=== PATIENT | female | born 1960 | race Caucasian/White ===

== ENCOUNTER 2017-10-31 10:11 | Outpatient (CLI) | payer OTHER ==
--- NOTE | 2017-11-01 06:53 | Diagnostic Imaging Report ---
ANALY DAVILA [facility] [address] [facility] [address] [id number] Report Submission Date: Oct 31, 2017 4:08:50 PM CDT Patient Study Name: JUDY LIU Date: Oct 31, 2017 10:31:42 AM CDT Modality Type: DX Gender: F Description: UPPER EXTREMITY : 62 Institution: [facility] Physician: ANALY DAVILA Examination: Plain film left finger History: CONTUSION/PAIN 5TH LEFT DIGIT (Hx) / ITS.REASON CONTUSION (DICOM Hx) / ITS.REASON CONTUSION (Pt comments) Comparison exams: None available Findings: 3 views the left 5th digit demonstrate osteopenia. Lucency involving the base of the proximal phalanx 5th digit. Articular degenerative changes. No other gross cortical abnormality. Impression: Fracture base proximal phalanx 5th digit. Electronically signed on Oct 31, 2017 4:08:50 PM CDT by: Sohail PETE
== END 2017-10-31 10:12 ==
LOC: RAD 10:11
PROVIDERS: ATTEND Family Medicine
DX: S60.052A Contusion of left little finger without damage to nail, initial encounter (principal); X58.XXXA Exposure to other specified factors, initial encounter; Y92.9 Unspecified place or not applicable; Y93.9 Activity, unspecified; Y99.9 Unspecified external cause status
CPT/HCPCS: 73140